=== PATIENT | female | born 1955 | race Caucasian/White ===

== ENCOUNTER 2018-02-05 23:35 | Emergency (ER) | payer OTHER | END 2018-02-06 01:22 | disposition home or self-care (01) | LOC: FTE 23:35 | DX: M62.830 Muscle spasm of back (principal); Z87.891 Personal history of nicotine dependence | CPT/HCPCS: 99284; Z7502 ==

== ENCOUNTER 2018-10-12 02:23 | Emergency (ER) | payer OTHER ==
[2018-10-12] MEDS: KETOROLAC 15 MG INJ IM (04:13)
== END 2018-10-12 04:50 | disposition home or self-care (01) ==
LOC: FTE 02:23
DX: M54.5 Low back pain (principal); Z87.891 Personal history of nicotine dependence
CPT/HCPCS: 96372; 99284-25; J1885